=== PATIENT | female | born 1965 | race Two or more races ===

== ENCOUNTER 2022-03-05 10:48 | Emergency (ER) | payer SELFPAY ==
[~2022-03-05] VITALS: Ht 160 cm; Wt 86.2 kg
[2022-03-05 11:34] VITALS: BP 145/93
[2022-03-05] MEDS ORDERED: ACE3T PO (13:29)
[2022-03-05] MEDS ORDERED: ACETAMINOPHEN/CODEINE#3 (300/30mg) TAB PO ONE (13:30)
[2022-03-05] MEDS ORDERED: ONDANSETRON ODT 4 MG TAB PO ONE (13:30)
== END 2022-03-05 13:46 | disposition home or self-care (01) ==
LOC: ER 10:48
DX: S83.91XA Sprain of unspecified site of right knee, initial encounter (principal); M13.861 Other specified arthritis, right knee; I10 Essential (primary) hypertension; Z90.49 Acquired absence of other specified parts of digestive tract; Z90.89 Acquired absence of other organs; Z88.0 Allergy status to penicillin; W01.0XXA Fall on same level from slipping, tripping and stumbling without subsequent striking against object, initial encounter; Y93.89 Activity, other specified; Y92.9 Unspecified place or not applicable; Y99.9 Unspecified external cause status
CPT/HCPCS: 29505; 73562; 99283; Q0162

== ENCOUNTER 2023-10-24 11:17 | Emergency (ER) | payer MEDICAID ==
[~2023-10-24] VITALS: Ht 152.4 cm; Wt 100.0 kg
[~2023-10-24 11:17] MED LIST: ACE3T PO
[2023-10-24] MEDS ORDERED: traMADol HCL 50 MG TAB PO ONE (13:00)
[2023-10-24] MEDS ORDERED: TRAM50TA2 PO (13:08)
[2023-10-24 13:28] VITALS: BP 143/67; PULSE 68; RESP 16; TEMP 98.3; O2SAT 95
== END 2023-10-24 13:36 | disposition home or self-care (01) ==
LOC: ER 11:17
DX: S46.912A Strain of unspecified muscle, fascia and tendon at shoulder and upper arm level, left arm, initial encounter (principal); I10 Essential (primary) hypertension; E78.5 Hyperlipidemia, unspecified; Z90.49 Acquired absence of other specified parts of digestive tract; Z90.710 Acquired absence of both cervix and uterus; Z87.891 Personal history of nicotine dependence; Z79.899 Other long term (current) drug therapy; Z88.0 Allergy status to penicillin; X58.XXXA Exposure to other specified factors, initial encounter; Y93.89 Activity, other specified; Y92.89 Other specified places as the place of occurrence of the external cause; Y99.8 Other external cause status
CPT/HCPCS: 73030; 93005